=== PATIENT | female | born 1960 | race African-American/Black ===

== ENCOUNTER 2021-10-23 17:54 | Inpatient (IN) | payer BC, OTHER ==
[2021-10-23 19:22] LABS: VENOUS BASE EXCESS -0.9 mmol/L (-2-2); VENOUS O2 SATURATION 78.2 % (70-80); VENOUS PCO2 42.5 mmHg (38-52); VENOUS PH 7.376 (7.310-7.410)
[2021-10-23 19:22] LABS: BASO % 0.2 % (0-2.0); EOS % 0.2 % (0-4.5); HEMATOCRIT 32.3 % (32.4-45.2); HEMOGLOBIN 10.6 GM/dL (10.7-15.3); MCH 29.3 pg (25.7-33.7); MCHC 32.9 g/dl (32.0-36.0); MEAN PLT VOLUME 6.2 fl (7.5-11.1); MONO % 17.3 % (3.8-10.2); NEUT % 42.3 % (42.8-82.8); PLATELET COUNT 200 10^3/uL (134-434); RBC 3.62 M/mm3 (3.60-5.2); WHITE BLOOD COUNT 4.8 K/mm3 (4.0-10.0)
[2021-10-23 19:30] LABS: INR 0.96 (0.83-1.09); PROTHROMBIN TIME (PATIENT) 10.7 SEC (9.7-13.0)
[2021-10-23 19:32] LABS: ACTIVATED PTT 31.7 SECONDS (25.2-36.5)
[2021-10-23 19:37] LABS: CHLORIDE 106 mmol/L (98-107); SODIUM 140 mmol/L (136-145)
[2021-10-23 19:40] LABS: ANION GAP 7 MMOL/L (8-16); BLOOD UREA NITROGEN 12.6 mg/dL (7-18); CALCIUM 9.2 mg/dL (8.5-10.1); CO2 27 mmol/L (21-32)
[2021-10-23 19:41] LABS: ALBUMIN 3.4 g/dl (3.4-5.0); GLUCOSE,RANDOM 90 mg/dL (74-106); MAGNESIUM 1.9 mg/dL (1.8-2.4)
[2021-10-23 19:43] LABS: PHOSPHOROUS 3.2 mg/dL (2.5-4.9)
[2021-10-23 19:44] LABS: CREATININE 0.7 mg/dL (0.55-1.3); SGOT/AST 28 U/L (15-37); SGPT/ALT 44 U/L (13-61)
[2021-10-23 19:45] LABS: BILIRUBIN,TOTAL 0.2 mg/dL (0.2-1); TOT PROT 6.9 g/dl (6.4-8.2)
[2021-10-23 19:46] LABS: ALK PHOS 133 U/L (45-117)
[2021-10-23 19:49] LABS: N-TERMINAL BNP 29.5 pg/ml (5-125)
[2021-10-23] MEDS ORDERED: ENOXAPARIN NA (PORCINE) 80 MG/0.8 ML DISP.SYRIN SQ ONE ×2 (20:02→21:11)
[2021-10-23] MEDS ORDERED: PENICILLIN V POTASSIUM 500 MG TABLET PO ONE (20:04)
[2021-10-23] MEDS ORDERED: APIXABAN 5 MG TABLET PO ONE (22:00)
[2021-10-24 09:06] LABS: BASO % 0.4 % (0-2.0); EOS % 0.4 % (0-4.5); HEMATOCRIT 32.3 % (32.4-45.2); HEMOGLOBIN 10.7 GM/dL (10.7-15.3); LYMPH % 33.6 % (8-40); MCH 29.4 pg (25.7-33.7); MEAN PLT VOLUME 6.3 fl (7.5-11.1); MONO % 17.3 % (3.8-10.2); NEUT % 48.3 % (42.8-82.8); PLATELET COUNT 206 10^3/uL (134-434); RBC 3.64 M/mm3 (3.60-5.2); RDW 33.6 % (11.6-15.6); WHITE BLOOD COUNT 3.5 K/mm3 (4.0-10.0)
[2021-10-24] MEDS ORDERED: ENOXAPARIN NA (PORCINE) 80 MG/0.8 ML DISP.SYRIN SQ ONE (09:17)
[2021-10-24 09:26] LABS: CALCIUM 9.2 mg/dL (8.5-10.1)
[2021-10-24 09:27] LABS: BLOOD UREA NITROGEN 14.6 mg/dL (7-18); MAGNESIUM 1.9 mg/dL (1.8-2.4)
[2021-10-24] MEDS: ENOXAPARIN NA (PORCINE) 80 MG/0.8 ML DISP.SYRIN SQ SCH ×2 (09:29→20:54)
[2021-10-24 09:30] LABS: CREATININE 0.8 mg/dL (0.55-1.3); PHOSPHOROUS 3.8 mg/dL (2.5-4.9)
[2021-10-24 09:32] LABS: BILIRUBIN,TOTAL 0.1 mg/dL (0.2-1); TOT PROT 6.3 g/dl (6.4-8.2)
[2021-10-24 19:25] VITALS: BMI 27.6
[2021-10-24] MEDS ORDERED: BENZOCAINE/MENTH/CETYLPYRD CL 1 EACH LOZENGE MM ONE (20:46)
[2021-10-25] MEDS: ENOXAPARIN NA (PORCINE) 80 MG/0.8 ML DISP.SYRIN SQ SCH ×2 (09:22→18:52)
[2021-10-25] MEDS ORDERED: ACETAMINOPHEN 325 MG TABLET (FP) PO ONE (12:00)
[2021-10-25] MEDS ORDERED: oxyCODONE HCL 5 MG TABLET PO ONE (12:00)
[2021-10-25] MEDS ORDERED: morphine SULFATE 4 MG/ML VIAL IVPUSH PRN (13:28)
[2021-10-25 17:36] VITALS: BP 114/87; PULSE 88; TEMP 97.9
== END 2021-10-25 19:45 | disposition home or self-care (01) | DRG 176 ==
LOC: JER 17:54 → JERBED 18:15 → J4W 10-24 15:32
PROVIDERS: ADMIT Internal Medicine
DX: I26.99 Other pulmonary embolism without acute cor pulmonale (principal); I25.10 Atherosclerotic heart disease of native coronary artery without angina pectoris; I10 Essential (primary) hypertension; E66.9 Obesity, unspecified; Z68.27 Body mass index [BMI] 27.0-27.9, adult; C55 Malignant neoplasm of uterus, part unspecified; R06.02 Shortness of breath
CPT/HCPCS: 36415; 80053; 82803; 83735; 83880; 84100; 84484; 85025; 85610; 85730; 93005; 93010; 99285-25; C9803; U0003; U0005